=== PATIENT | female | born 1960 | race Caucasian/White ===

== ENCOUNTER → 2018-11-21 | Outpatient (CLI) | payer BC ==
[~2018-11-21] MED LIST: ALBU2.5V8 INH; BUPR100T8 PO; CONTRAST GIVEN. MC PRN; DEXT10TA38 PO; DEXT25CA4 PO; DOCU-109 PO; FLUO40CA2 PO; FLUT1DIS3 IH; IOHEXOL 300 MG/ML 100ML VIAL. IV ONE; MONT10TA9 PO; NAPR-683 PO; OXYC1TAB15 PO; PANT40GR PO
[2018-11-21 09:06] VITALS: BP 167/79
--- NOTE | 2018-11-21 13:38 | RAD ---
Examination: CT CHEST W/CONTRAST History: right chest wall mass omni 300 75ml Comparison/Correlation: None Findings: Axial images of chest were obtained following IV contrast. Sagittal and coronal reformatted images were provided. Tracheobronchial tree is normal. No infiltrates. No suspicious for nodule or mass lesions. No enlarged thoracic lymph nodes. Thoracic aorta is unremarkable. Pulmonary arterial vasculature centrally is unremarkable. There is no chest wall mass identified. Bony structures are unremarkable. Old right lateral eighth rib fracture is present. Cholecystectomy noted. Moderate to marked left renal inferior pole atrophy is present. Small hiatal hernia noted. Impression: Old right lateral eighth rib fracture. No chest wall mass or other suspicious process. Small hiatal hernia. Marked left renal inferior pole atrophy. PQRS Compliance Statement: One or more of the following individualized dose reduction techniques were utilized for this examination: 1. Automated exposure control 2. Adjustment of the mA and/or kV according to patient size 3. Use of iterative reconstruction technique Electronically signed by: Ousmane Carrero MD (11/21/2018 1:35 PM) [facility]
== END | disposition home or self-care (01) ==
LOC: CT 13:34
PROVIDERS: ATTEND Family Medicine
DX: K44.9 Diaphragmatic hernia without obstruction or gangrene (principal); N26.1 Atrophy of kidney (terminal); Z90.49 Acquired absence of other specified parts of digestive tract; Z87.81 Personal history of (healed) traumatic fracture
CPT/HCPCS: 71260; Q9967; 88305

== ENCOUNTER → 2018-11-21 | Day surgery (SDC) | payer BC ==
[~2018-11-21] MED LIST changes: -CONTRAST GIVEN. MC PRN; +HYDROmorphone 2 MG/ML VIAL IV PRN; -IOHEXOL 300 MG/ML 100ML VIAL. IV ONE; +IV RINGERS,LACTATED 1000ML 1,000 ML IV SCH; +LIDOCAINE 1% PF 2 ML VIAL. ID PRN; +LIDOCAINE 2% PF 5 ML VIAL. ONE; +MORPHINE SULFATE 2 MG/ML VIAL. IV PRN; +ONDANSETRON PF 4 MG/2 ML VIAL. IV PRN; +PROCHLORPERAZINE 10 MG/2 ML VIAL. IV PRN; +PROPOFOL 20 ML IV ONE; +fentaNYL PF VIAL 100 MCG/2 ML VIAL IV PRN
[2018-11-21 09:06] VITALS: BP 167/79
--- NOTE | 2018-11-24 16:06 | PATHOLOGY ---
[facility] Accession Number: [id number] . 01 Material submitted: . esophagus - DISTAL ESOPHAGUS. Modifiers: distal . 01 Clinical history: . Pre-OP DX: Dysphagia Post-OP DX: Reflux, rule out Foster's . 02 Diagnosis: Esophageal biopsies, distal esophagus: - Segments of hyperplastic squamous esophageal mucosa consistent with reflux esophagitis. (JPM:[facility] 11/24/2018) P/11/24/2018 . 02 Comment: Sections of the distal esophageal biopsy reveal segments of hyperplastic squamous esophageal mucosa. The findings are consistent with reflux esophagitis. There is no evidence of Foster's change, dysplasia, or malignancy. (JPM:[facility] 11/24/2018) . 02 Electronically signed: . Diego Orozco MD, Pathologist NPI- [id number] . 01 Gross description: . Received in formalin labeled "Linda Hackett, distal esophagus," are 3 segments of ennis soft tissue measuring 1.2 x 0.8 x 0.3 cm in aggregate dimensions and ranging from 0.3 to 0.5 cm in maximum dimension. The specimen is submitted entirely in cassette A1. (TSD; 11/21/2018) TOB/TOB . 02 Pathologist provided ICD-10: K21.0 . 02 CPT . 915337 Specimen Comment: A courtesy copy of this report has been sent to Specimen Comment: [phone], . Specimen Comment: Report sent to / DR CARTAGENA Performed at: 01 [facility] [address], [place], [place] [id number] MD Tony Lucas MD Phone: [phone] Performed at: 02 [facility] [address] [place], [place] [id number] MD Diego Orozco MD Phone: [phone]
== END | disposition home or self-care (01) ==
LOC: SURG 07:13
PROVIDERS: ATTEND Internal Medicine Gastroenterology
DX: K21.0 Gastro-esophageal reflux disease with esophagitis (principal); F41.9 Anxiety disorder, unspecified; J45.909 Unspecified asthma, uncomplicated; M19.90 Unspecified osteoarthritis, unspecified site; Z82.49 Family history of ischemic heart disease and other diseases of the circulatory system; Z79.899 Other long term (current) drug therapy; Z98.890 Other specified postprocedural states
CPT/HCPCS: 43239; J2001; J2704